=== PATIENT | female | born 1985 | race Caucasian/White ===

== ENCOUNTER 2021-06-30 06:32 | Day surgery (SDC) | payer MEDICAID ==
[2021-06-30] MEDS ORDERED: Sodium Chloride 0.9% 1,000 ML IV SCH (07:00)
[2021-06-30] MEDS ORDERED: Midazolam 1 MG/ML 2 ML SDV ONE (07:05)
[2021-06-30] MEDS ORDERED: Propofol 200 MG/20 ML SDV ONE (07:05)
[2021-06-30] MEDS ORDERED: fentaNYL 100 MCG/2 ML SDV ONE (07:05)
== END 2021-06-30 09:15 | disposition home or self-care (01) ==
LOC: JP.SDS 06:32
PROVIDERS: ATTEND Surgery
DX: K52.832 Lymphocytic colitis (principal); I10 Essential (primary) hypertension; K21.9 Gastro-esophageal reflux disease without esophagitis
CPT/HCPCS: 81025; 88305; J2250; J2704; J3010; J7030

== ENCOUNTER 2021-09-02 13:58 | Emergency (ER) | payer MEDICAID ==
[2021-09-02] MEDS ORDERED: Ondansetron 4 MG Tab.DIS PO ONE (14:26)
[2021-09-02] MEDS ORDERED: Ketorolac 30 MG/ML SDV IM ONE (14:26)
[2021-09-02] MEDS ORDERED: fentaNYL 100 MCG/2 ML SDV IM ONE (15:13)
[2021-09-02] MEDS ORDERED: HYDROmorphone 1 MG/ML Syringe IM ONE (17:13)
== END 2021-09-02 18:46 | disposition home or self-care (01) ==
LOC: JP.ED 13:58
DX: R10.2 Pelvic and perineal pain (principal); I10 Essential (primary) hypertension; E03.9 Hypothyroidism, unspecified; K21.9 Gastro-esophageal reflux disease without esophagitis; Z88.5 Allergy status to narcotic agent; Z88.8 Allergy status to other drugs, medicaments and biological substances; Z87.891 Personal history of nicotine dependence; Z79.899 Other long term (current) drug therapy
CPT/HCPCS: 36415; 74176; 74176-26; 76830; 76857; 80053; 81001; 83605; 84145; 85025; 96372; 99282; 99284-25; J1170; J1885; J3010; Q0162

== ENCOUNTER 2021-10-04 15:50 | Emergency (ER) | payer MEDICAID ==
[2021-10-04] MEDS ORDERED: Sodium Chloride 0.9% 10 ML Syringe FLUSH PRN (17:00)
[2021-10-04] MEDS ORDERED: HYDROmorphone 0.5 MG/0.5 ML Syringe IVPUSH ONE (17:01)
[2021-10-04] MEDS ORDERED: Iopamidol 612 MG/ML 100 ML Bottle IV PRN (17:07)
[2021-10-04] MEDS ORDERED: Ondansetron 4 MG/2 ML SDV IVPUSH ONE (17:10)
[2021-10-04] MEDS ORDERED: Sodium Chloride 0.9% 100 ML IV SCH (17:15)
== END 2021-10-04 19:01 | disposition home or self-care (01) ==
LOC: JP.ED 15:50
DX: G89.18 Other acute postprocedural pain (principal); R10.84 Generalized abdominal pain; K21.9 Gastro-esophageal reflux disease without esophagitis; I10 Essential (primary) hypertension; E03.9 Hypothyroidism, unspecified; Z90.49 Acquired absence of other specified parts of digestive tract; Z79.899 Other long term (current) drug therapy; Z88.8 Allergy status to other drugs, medicaments and biological substances
CPT/HCPCS: 36415; 74177; 80048; 85025; 86140; 96374; 96375; 99283; 99284-25; J1170; J2405; J3490; Q9967

== ENCOUNTER 2021-12-21 19:38 | Emergency (ER) | payer MEDICAID ==
[2021-12-21] MEDS ORDERED: Iopamidol 755 Mg/ML 100 ML Bottle IV SCH (21:15)
[2021-12-21] MEDS ORDERED: Sodium Chloride 0.9% 100 ML IV SCH (21:15)
[2021-12-21] MEDS ORDERED: amLODIPine 5 MG Tab PO ONE (23:13)
[2021-12-24 01:11] LABS: ANA DIRECT Negative (Negative)
== END 2021-12-21 23:33 | disposition home or self-care (01) ==
LOC: JP.ED 19:38
DX: H53.131 Sudden visual loss, right eye (principal); K21.9 Gastro-esophageal reflux disease without esophagitis; E03.9 Hypothyroidism, unspecified; I10 Essential (primary) hypertension; F17.210 Nicotine dependence, cigarettes, uncomplicated; Z88.8 Allergy status to other drugs, medicaments and biological substances; Z79.899 Other long term (current) drug therapy; Z86.16 Personal history of COVID-19; Z90.49 Acquired absence of other specified parts of digestive tract; Z90.710 Acquired absence of both cervix and uterus
CPT/HCPCS: 36415; 70496; 80048; 85025; 85651; 86038; 99284; J3490; Q9967

== ENCOUNTER 2021-12-27 07:31 | Emergency (ER) | payer MEDICAID | END 2021-12-27 09:06 | disposition home or self-care (01) | LOC: JP.ED 07:31 | DX: N99.820 Postprocedural hemorrhage of a genitourinary system organ or structure following a genitourinary system procedure (principal); I10 Essential (primary) hypertension; E03.9 Hypothyroidism, unspecified; Z86.16 Personal history of COVID-19; Z88.5 Allergy status to narcotic agent; Z88.8 Allergy status to other drugs, medicaments and biological substances; Z79.899 Other long term (current) drug therapy | CPT/HCPCS: 36415; 81001; 85025; 99284 ==